=== PATIENT | female | born 1940 | race Caucasian/White ===

== ENCOUNTER 2017-02-11 07:38 | Emergency (ER) | payer MEDICARE ==
[2017-02-11 07:44] VITALS: BP 167/85
--- NOTE | 2017-02-11 10:04 | RAD ---
INDICATION: Left forearm injury. TECHNIQUE: 2 views of the left forearm were obtained. FINDINGS: The bones appear osteopenic and in normal alignment. There is a nondisplaced fracture of the distal radial metaphysis. No additional fracture is seen. IMPRESSION: NONDISPLACED FRACTURE OF THE DISTAL RADIUS.
--- NOTE | 2017-02-11 10:06 | RAD ---
INDICATION: Left wrist injury. TECHNIQUE: 3 views of the left wrist were obtained. FINDINGS: The bones are in normal alignment. There is a buckle in the medial and posterior cortex of the distal radius most consistent with a nondisplaced fracture. There is suggestion on one view of extension to the articular surface. No other fractures are seen. 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 IMPRESSION: NONDISPLACED INTRA-ARTICULAR FRACTURE OF THE DISTAL RADIAL METAPHYSIS.
--- NOTE | 2017-02-11 10:11 | RAD ---
INDICATION: Left elbow injury. TECHNIQUE: 3 views of the left elbow were obtained. FINDINGS: There is a small joint effusion present. There are several calcific densities which project along the anterior aspect of the elbow most consistent with soft tissue calcification less likely fracture fragments. No focal osseous abnormality is seen. IMPRESSION: AREAS OF CALCIFICATION ALONG THE ANTERIOR ASPECT OF THE ELBOW LIKELY REPRESENTING SOFT TISSUE CALCIFICATIONS LESS LIKELY FRACTURE FRAGMENTS. THIS FINDING CAN BE FURTHER EVALUATED WITH A CT OF THE ELBOW CLINICALLY NEEDED.
[2017-02-11] MEDS ORDERED: Ketorolac INJ* 60 MG/2 ML VIAL IM ONE (11:25)
--- NOTE | 2017-02-11 18:31 | ED ---
Raya Jones Thomas, scribed for Jonah Davison MD on 02/11/17 at 0837 . Upper Extremity Pain - HPI Summary HPI Summary: The pt is a 76 y/o F presenting to the ED c/o L arm pain s/p falling down 6 steps in [facility] four days ago. At a [facility], she was told that she had a dislocation and that there was a chip. It was recommended that she receive further medical evaluation when she returned to the ED. In the ED, she c/o neck pain (secondary to weight of cast), back pain (secondary to weight of cast), L elbow swelling, L hand swelling, and L hand cyanosis. CHIN STRAP SEWER to the ED , she took Tachipirina 1000mg, per EMR. She is not on any daily medication. PMHx : claims she is previously healthy. PSHx: R hand Fx when she was a child. SHx: no smoking, daily drinking, no illicit drugs. FHx: [place]. - History of Current Complaint Chief Complaint: EDExtremityUpper Stated Complaint: BROKEN ARM , BACK PAIN Time Seen by Provider: 02/11/17 07:56 Hx Obtained From: Patient Mechanism Of Injury: Fall From Height Of: - 8 stairs Onset/Duration: Started Days Ago - 4 days, Still Present Timing: Constant Pain Location: Elbow - L Aggravating Factor(s): Nothing Alleviating Factor(s): Nothing Associated Signs & Symptoms: Positive: Swelling - to L hand, L elbow, Back Pain - secondary to weight of cast, Neck Pain - secondary to weight of cast, Other - POS: cyanosis to L hand - Allergies/Home Medications Allergies/Adverse Reactions: Allergies Allergy/AdvReac Type Severity Reaction Status Date / Time No Known Allergies Allergy Verified 05/03/15 07:59 PMH/Surg Hx/FS Hx/Imm Hx Previously Healthy: Yes Respiratory History: Denies: Hx Chronic Obstructive Pulmonary Disease (COPD) Opthamlomology History: Denies: Hx Legally Blind - Cancer History Hx Chemotherapy: No Hx Radiation Therapy: No - Surgical History Surgery Procedure, Year, and Place: repair of R hand Fx when she was a child - Immunization History Date of Tetanus Vaccine: unknown Date of Influenza Vaccine: 2013 Infectious Disease History: No Infectious Disease History: Denies: Traveled Outside the [place] in Last 30 Days - Family History Known Family History: Positive: Other - POS: [place] - Social History Alcohol Use: Daily Substance Use Type: Reports: None Smoking Status (MU): Never Smoked Tobacco Review of Systems Constitutional: Negative Negative: Fever Eyes: Negative ENT: Negative Cardiovascular: Negative Respiratory: Negative Gastrointestinal: Negative Genitourinary: Negative Positive: Edema - to L elbow, L hand, Other - POS: L arm pain, neck pain ( secondary to weight of cast), back pain (secondary to weight of cast) Positive: Other - POS: cyanosis to L hand Neurological: Negative Psychological: Normal All Other Systems Reviewed And Are Negative: Yes Physical Exam - Summary Physical Exam Summary: VITAL SIGNS: Reviewed. GENERAL: ~Patient is a well-developed and nourished female who is lying comfortable in the stretcher. ~Patient is not in any acute respiratory distress. HEAD AND FACE: No signs of trauma. ~No ecchymosis, hematomas or skull depressions. No sinus tenderness. EYES: PERRLA, EOMI x 2, No injected conjunctiva, no nystagmus. EARS: Hearing grossly intact. Ear canals and tympanic membranes are within normal limits. MOUTH: Oropharynx within normal limits. NECK: Supple, trachea is midline, no adenopathy, no JVD, no carotid bruit, no c- spine tenderness, neck with full ROM. CHEST: Symmetric, no tenderness at palpation LUNGS: Clear to auscultation bilaterally. No wheezing or crackles. CVS: Regular rate and rhythm, S1 and S2 present, no murmurs or gallops appreciated. ABDOMEN: Soft, non-tender. No signs of distention. No rebound no guarding, and no masses palpated. Bowel sounds are normal. EXTREMITIES: L hand swelling and tingling. In other extremities: FROM, no edema , no cyanosis or clubbing. NEURO: Alert and oriented x 3. No acute neurological deficits. Speech is normal and follows commands. SKIN: Dry and warm Triage Information Reviewed: Yes Vital Signs On Initial Exam: Initial Vitals Temp Pulse Resp BP Pulse Ox 97.2 F 72 16 167/85 98 02/11/17 07:41 02/11/17 07:41 02/11/17 07:41 02/11/17 07:41 02/11/17 07:41 Vital Signs Reviewed: Yes Diagnostics - Vital Signs Vital Signs Temp Pulse Resp BP Pulse Ox 02/11/17 07:41 97.2 F 72 16 167/85 98 - Laboratory Lab Statement: Any lab studies that have been ordered have been reviewed, and results considered in the medical decision making process. - Radiology Wrist XR Xray Interpretation: Positive (See Comments) - NONDISPLACED INTRA-ARTICULAR FRACTURE OF THE DISTAL RADIAL METAPHYSIS Radiology Interpretation Completed By: Radiologist Forearm XR Xray Interpretation: Positive (See Comments) - NONDISPLACED FRACTURE OF THE DISTAL RADIUS. Radiology Interpretation Completed By: Radiologist Elbow XR Xray Interpretation: Positive (See Comments) - AREAS OF CALCIFICATION ALONG THE ANTERIOR ASPECT OF THE ELBOW LIKELY REPRESENTING SOFT TISSUE CALCIFICATIONS LESS LIKELY FRACTURE FRAGMENTS. THIS FINDING CAN BE FURTHER EVALUATED WITH A CT OF THE ELBOW CLINICALLY NEEDED. Radiology Interpretation Completed By: Radiologist Course/Dx - Course Assessment/Plan: The pt is a 76 y/o F presenting to the ED c/o L arm pain s/p falling down 6 steps in [facility] four days ago. At a [facility], she was told that she had a dislocation and that there was a chip. It was recommended that she receive further medical evaluation when she returned to the ED. In the ED, she c/o neck pain (secondary to weight of cast), back pain ( secondary to weight of cast), L elbow swelling, L hand swelling, and L hand cyanosis. CHIN STRAP SEWER to the ED, she took Tachipirina 1000mg, per EMR. She is not on any daily medication. PMHx: claims she is previously healthy. PSHx: R hand Fx when she was a child. SHx: no smoking, daily drinking, no illicit drugs. FHx: [place]. Wrist XR reveals NONDISPLACED INTRA-ARTICULAR FRACTURE OF THE DISTAL RADIAL METAPHYSIS.. Forearm XR reveals NONDISPLACED FRACTURE OF THE DISTAL RADIUS. Elbow XR reveals AREAS OF CALCIFICATION ALONG THE ANTERIOR ASPECT OF THE ELBOW LIKELY REPRESENTING SOFT TISSUE CALCIFICATIONS LESS LIKELY FRACTURE FRAGMENTS. THIS FINDING CAN BE FURTHER EVALUATED WITH A CT OF THE ELBOW CLINICALLY NEEDED. I removed the cast from the patient. The patient has been having pain, tingling, swelling in her hand. The XR shows that she has a distal radius fracture. The XRs did not indicate an elbow fracture, but the patient is very tender, therefore I placed a posterior splint. The patient has neurovascular intactness to the LUE. The pt [facility] be [facility] The patient was given Toradol for the pain and will be discharged with Naproxen. She is alert and oriented x3 and is hemodynamically stable. - Diagnoses Differential Diagnosis/HQI/PQRI: Positive: Contusion, Fracture (Closed), Strain , Sprain Provider Diagnoses: Left elbow fracture, Left wrist fracture Discharge - Discharge Plan Condition: Stable Disposition: HOME Prescriptions: Naproxen TAB* [Naprosyn 250 mg TAB*] 500 mg PO Q8H PRN #20 tab PRN Reason: Pain Patient Education Materials: Elbow Fracture (ED), Wrist Fracture in Adults (ED) Referrals: [facility] [Outside] - 3 Days The documentation as recorded by the Raya feldman Thomas accurately reflects the service I personally performed and the decisions made by Saman kwon Walter, MD.
== END 2017-02-11 11:52 | disposition home or self-care (01) ==
LOC: ED 07:38
DX: M79.89 Other specified soft tissue disorders (principal); S62.102A Fracture of unspecified carpal bone, left wrist, initial encounter for closed fracture; S42.402A Unspecified fracture of lower end of left humerus, initial encounter for closed fracture; M54.2 Cervicalgia; W10.9XXA Fall (on) (from) unspecified stairs and steps, initial encounter; Y93.9 Activity, unspecified; Y92.9 Unspecified place or not applicable; Y99.9 Unspecified external cause status; M54.9 Dorsalgia, unspecified
CPT/HCPCS: 96372; 99282; J1885

== ENCOUNTER 2017-05-09 02:25 | Emergency (ER) | payer MEDICARE ==
[2017-05-09] MEDS ORDERED: diPHENhydraMINE IV* 50 MG/ML 1 ml VIAL (BENADRYL) IV ONE (03:32)
[2017-05-09] MEDS ORDERED: methylPREDNISolone 125 MG* 2 ML VIAL IV ONE (03:33)
--- NOTE | 2017-05-09 05:53 | ED ---
Heena Jones Rebecca, scribed for Godfrey Michele MD on 05/09/17 at 0333 . Allergic Reaction/Systemic - HPI Summary HPI Summary: Pt is a 76 y/o F who presents to ED s/p yellow jacket sting to the R hand at approximately 1730. Pt c/o swelling and erythema to the R hand and throat pain. Pain is described as "scratchy" and is currently mild, ranked 3/10. 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 Sx aggravated and alleviated by nothing. Denies SOB. Confirms she has been stung by bees in the past. - History of Current Complaint Chief Complaint: EDAllergicReaction Hx Obtained From: Patient Onset/Duration: Started hours ago, Still Present Severity Currently: Mild Pain Intensity: 3 Pain Scale Used: 0-10 Numeric Location: Discrete @ - R hand Character: Swelling Aggravating Factor(s): Nothing Alleviating Factor(s): Nothing Associated Signs And Symptoms: Positive: Other: - Sore throat. Negative: Difficulty Breathing - Allergies/Home Medications Allergies/Adverse Reactions: Allergies Allergy/AdvReac Type Severity Reaction Status Date / Time No Known Allergies Allergy Verified 05/09/17 02:42 PMH/Surg Hx/FS Hx/Imm Hx Respiratory History: Denies: Hx Chronic Obstructive Pulmonary Disease (COPD) Sensory History: Denies: Hx Legally Blind Opthamlomology History: Denies: Hx Legally Blind - Cancer History Hx Chemotherapy: No Hx Radiation Therapy: No - Surgical History Surgery Procedure, Year, and Place: repair of R hand Fx when she was a child - Immunization History Date of Tetanus Vaccine: unknown Date of Influenza Vaccine: 2013 Infectious Disease History: No Infectious Disease History: Denies: Traveled Outside the [place] in Last 30 Days - Family History Known Family History: Positive: Other - POS: [place] - Social History Alcohol Use: Daily Substance Use Type: Reports: None Smoking Status (MU): Never Smoked Tobacco Review of Systems Positive: Sore Throat Negative: Shortness Of Breath Positive: Other - R hand erythema and swelling All Other Systems Reviewed And Are Negative: Yes Physical Exam Triage Information Reviewed: Yes Vital Signs On Initial Exam: Initial Vitals Temp Pulse Resp BP Pulse Ox 97.7 F 62 16 160/73 98 05/09/17 02:35 05/09/17 02:35 05/09/17 02:35 05/09/17 02:35 05/09/17 02:35 Vital Signs Reviewed: Yes Appearance: Positive: Well-Appearing, No Pain Distress Skin: Positive: Warm, Dry Head/Face: Positive: Other - Minimal periorbital erythema Eyes: Positive: Normal ENT: Positive: Normal ENT inspection. Negative: Pharyngeal erythema Neck: Positive: Supple Respiratory/Lung Sounds: Positive: Clear to Auscultation, Breath Sounds Present , Other - No respiratory distress Cardiovascular: Positive: Normal, RRR, Pulses are Symmetrical in both Upper and Lower Extremities, S1, S2 Musculoskeletal: Positive: Other - R hand diffusely swollen on the posterior surface form the finger tip to the wrist with good capillary refill, no evidence of distal neurovascular compromise and bilateral and equal radial pulses Neurological: Positive: Normal, Sensory/Motor Intact, Alert, Oriented to Person Place, Time Psychiatric: Positive: Normal - Campbell Coma Scale Coma Scale Total: 15 Diagnostics - Vital Signs Vital Signs Temp Pulse Resp BP Pulse Ox 05/09/17 03:20 20 05/09/17 02:35 97.7 F 62 16 160/73 98 - Laboratory Lab Statement: Any lab studies that have been ordered have been reviewed, and results considered in the medical decision making process. Re-Evaluation - Re-Evaluation First Eval Re-Evaluation Time: 05:34 Change: Improved Comment: Pt is doing well, discussed D/C plan. Allergic Reaction Course/Dx - Course Course Of Treatment: no resp distress, feels better after meds, improved swelling in hand. advised to continue meds for 4 more days and to use epi pen if she experiences any further allergic reactions involving shortness of breath or tongue/lip swelling. pt agrees t oand understands dc instructoins. - Diagnoses Provider Diagnoses: Allergic reaction Discharge - Discharge Plan Condition: Improved Disposition: HOME Prescriptions: EPINEPHrine SYR* [EPINEPHphrine SYR*] 0.1 mg .SEE ORDER SEE INSTRUCTIONS PRN #2 amp PRN Reason: Allergy Symptoms Famotidine TAB* [Pepcid 20 MG TAB*] 20 mg PO DAILY #4 tab diPHENhydraMINE PO* [Benadryl PO 25 MG TAB*] 25 mg PO DAILY #5 tab predniSONE TAB* [Deltasone TAB*] 50 mg PO DAILY #4 tab Patient Education Materials: Allergies (ED) Referrals: Breezy Mayo MD [Primary Care Provider] - Additional Instructions: 1. PLEASE USE EPI PEN IMMEDIATELY IN CASE OF EMERGENCY WITH ALLERGIC REACTION CAUSING SHORTNESS OF BREATH. REPORT TO THE EMERGENCY ROOM IMMEDIATELY AND CALL [phone] 2. PLEASE CONTINUE MEDICATIONS AND MAKE AN APPOINTMENT FIRST THING IN THE MORNING TO BE SEEN BY YOUR PRIMARY DOCTOR WITHIN 1 WEEK The documentation as recorded by the Heena feldman Rebecca accurately reflects the service I personally performed and the decisions made by me, Godfrey Michele MD.
[2017-05-09 06:46] VITALS: BP 149/69
== END 2017-05-09 06:45 | disposition home or self-care (01) ==
LOC: ED 02:25
DX: T78.40XA Allergy, unspecified, initial encounter (principal); J02.9 Acute pharyngitis, unspecified; X58.XXXA Exposure to other specified factors, initial encounter
CPT/HCPCS: 96374; 96375; 99284; J1200; J2930